=== PATIENT | female | born 1970 | race Caucasian/White ===

== ENCOUNTER 2017-07-26 10:58 | Emergency (ER) | payer BC ==
[~2017-07-26] VITALS: Ht 157.5 cm; Wt 147.4 kg
[2017-07-26] MEDS ORDERED: fentaNYL PF VIAL 100 MCG/2 ML VIAL IV PRN (12:30)
[2017-07-26] MEDS ORDERED: MORPHINE SULFATE 4 MG/ML DISP.SYRIN. IV/SQ PRN (12:45)
[2017-07-26 12:48] LABS: BASO # 0.1 x10^3/uL (0.0-0.2); BASO % 1 % (0-3); EOS % 1 % (0-3); HEMATOCRIT 44.2 % (36.0-47.0); HEMOGLOBIN 14.7 g/dL (12.0-15.5); LYMPH # 2.4 x10^3/uL (1.0-4.8); LYMPH % 27 % (24-48); MEAN CORPUSCULAR HEMOGLOBIN 29 pg (25-35); MEAN CORPUSCULAR HGB CONC 33 g/dL (31-37); MEAN CORPUSCULAR VOLUME 87 fL (79-100); MONO % 6 % (0-9); NEUT % 66 % (31-73); PLATELET COUNT 246 x10^3/uL (140-400); RED BLOOD COUNT 5.06 x10^6/uL (3.50-5.40); RED CELL DISTRIBUTION WIDTH 14.4 % (11.5-14.5); WHITE BLOOD COUNT 9.1 x10^3/uL (4.0-11.0)
[2017-07-26 12:49] LABS: BILIRUBIN,URINE NEGATIVE (NEG); GLUCOSE,URINE NEGATIVE (NEG); NITRITE,URINE NEGATIVE (NEG); PH,URINE 5.5; PROTEIN,URINE NEGATIVE (NEG-TRACE); UROBILINOGEN,URINE 0.2 mg/dL (0.2 mg/dL)
[2017-07-26 12:59] LABS: CALCIUM 9.2 mg/dL (8.5-10.1); CREATININE 0.7 mg/dL (0.6-1.0); GFR 89.3; POTASSIUM 4.3 mmol/L (3.5-5.1)
[2017-07-26 13:04] LABS: BACTERIA,URINE MODERATE /HPF (0-FEW); SQUAMOUS EPITHELIAL CELL,UR MOD /LPF
[2017-07-26 13:05] LABS: ALBUMIN 3.6 g/dL (3.4-5.0); TOTAL BILIRUBIN 0.3 mg/dL (0.2-1.0); TOTAL PROTEIN 7.1 g/dL (6.4-8.2)
--- NOTE | 2017-07-26 13:11 | RAD ---
PQRS Compliance Statement: One or more of the following individualized dose reduction techniques were utilized for this examination: 1. Automated exposure control 2. Adjustment of the mA and/or kV according to patient size 3. Use of iterative reconstruction technique CT HEAD WITHOUT CONTRAST History: LLE numbness . Comparison: None. Procedure: Axial images are obtained of the head from the skull base through the vertex without IV contrast. Findings: [place]-white matter differentiation is preserved. The ventricles and sulci are normal for the patient's age.. No mass-effect, midline shift, hemorrhage or obvious acute infarction is identified. Basilar cisterns are patent. Bone windows demonstrate no significant calvarial abnormality.The visualized paranasal sinuses appear clear. Mastoid air cells are well aerated. IMPRESSION: No acute intracranial abnormality.
--- NOTE | 2017-07-26 15:17 | RAD ---
THORACIC SPINE WO CONTRAST, LUMBAR SPINE WO CONTRAST Clinical Indication: LLE LLQ numbness without weakness, saddle anesthesia Comparison: None. Technique: Routine multiplanar multiple pulse sequence images of the thoracic and lumbar spine are obtained without IV contrast. Findings: On the glass sagger image there is spondylitic discs in the cervical spine at C5/C6 and C6/C7. These indent the ventral thecal sac. No high-grade central canal stenosis is seen. There is straightening of normal cervical lordosis that may be positional or due to muscle spasm. There is no cerebellar tonsillar ectopia. The vertebral body height and alignment are maintained in the thoracic spine. No bone marrow edema is identified. No suspicious T1 marrow signal abnormality. The T2 signal and caliber of the thoracic cord are normal. There are tiny central disc protrusions of T4/T5, T6/T7, T7/T8, and T8/T9. T9/T10: There is a central disc protrusion that indents the ventral cord. No significant central canal stenosis. No significant neural foraminal narrowing is identified in the thoracic spine. Central canal is patent throughout. The vertebral body height and alignment are maintained in the lumbar spine. There is disc desiccation of L3/L4, L4/L5, and L5/S1. No significant disc space narrowing. No bone marrow edema is identified. No suspicious T1 marrow signal abnormality. Conus medullaris is normal in signal intensity and appearance, terminates at the level of L1/L2. There is a rudimentary disc space at S1/S2. The last fully formed disc space will be considered L5/S1. L1/L2 and L2/L3: Unremarkable. L3/L4: Minimal broad-based posterior disc bulge. The central canal is widely patent. Minimal right nasal and left neural foraminal narrowing. L4/L5: There is minimal broad-based posterior disc bulge and mild facet hypertrophy. The right facet may minimally abut the descending right L5 nerve root. The central canal is patent. Neural foramina are adequate. L5/S1: Broad-based posterior disc bulge. The central canal is patent. Neural foramina are adequate. Limited visualization of the retroperitoneum is unremarkable. IMPRESSION: 1. No acute compression fracture in the thoracic or lumbar spine. 2. No significant central canal stenosis or neural foraminal narrowing.
[2017-07-26 16:09] VITALS: BP 171/88
[2017-07-26] MEDS ORDERED: HYDR-971 PO (16:21)
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
--- NOTE | 2017-07-26 17:05 | EKG ---
[facility] [address] [place] [address] Test Date: 2017-07-26 Test Time: 12:37:45 Pat Name: AUDREY ACEVEDO Department: Room: Gender: F Russian History Professor: : [id number] Requested By: VIVIANA RODRÍGUEZ Order Number: [id number] Reading MD: Measurements Intervals [place] Rate: 75 P: 54 SD: 126 QRS: 33 QRSD: 84 T: 24 QT: 360 QTc: 404 Interpretive Statements SINUS RHYTHM NO SPECIFIC ECG ABNORMALITIES RI6.01 No previous ECG available for comparison
== END 2017-07-26 17:00 | disposition home or self-care (01) ==
LOC: ER 10:58
DX: R20.2 Paresthesia of skin (principal); R20.0 Anesthesia of skin; R53.1 Weakness; M19.071 Primary osteoarthritis, right ankle and foot; E66.01 Morbid (severe) obesity due to excess calories; Z68.43 Body mass index [BMI] 50.0-59.9, adult; Z90.710 Acquired absence of both cervix and uterus; Z90.721 Acquired absence of ovaries, unilateral; Z88.8 Allergy status to other drugs, medicaments and biological substances
CPT/HCPCS: 36415; 70450; 72146; 72148; 80053; 81001; 85025; 87086; 93005; 96374; 99285; J2270

== ENCOUNTER → 2017-10-02 | Outpatient (CLI) | payer BC | END | disposition home or self-care (01) | LOC: KCIC MRI 09:26 | DX: G37.9 Demyelinating disease of central nervous system, unspecified (principal); I73.9 Peripheral vascular disease, unspecified; R90.82 White matter disease, unspecified | CPT/HCPCS: 70551 ==

== ENCOUNTER → 2017-10-07 | Outpatient (CLI) | payer BC | END | disposition home or self-care (01) | LOC: KCIC MAMMO 15:13 | DX: Z12.31 Encounter for screening mammogram for malignant neoplasm of breast (principal) | CPT/HCPCS: 77067 ==